=== PATIENT | female | born 1995 | race Caucasian/White ===

== ENCOUNTER 2017-09-04 08:21 | Emergency (ER) | payer SELFPAY ==
[~2017-09-04] VITALS: Ht 160 cm; Wt 90.0 kg
[~2017-09-04 08:21] MED LIST: PROM25SU8 PO
[2017-09-04 08:22] VITALS: BP 180/102; PULSE 94; RESP 14; TEMP 98.5; O2SAT 99
[2017-09-04 08:25] VITALS: BP 134/90
[2017-09-04] MEDS ORDERED: FLUT1SPR5 EACH NARE (09:00)
[2017-09-04] MEDS ORDERED: AMOX875T PO (09:00)
[2017-09-04] MEDS ORDERED: METF500T PO (09:00)
[2017-09-04] MEDS ORDERED: MAXI5O EACH EYE (09:08)
--- NOTE | 2017-09-04 09:08 | PD ---
HPI Chief Complaint: Eye Problems/Injury Time Seen by Provider: 08:46 Travel History International Travel<30 days: No Contact w/Intl Traveler<30days: No Traveled to known affect area: No History of Present Illness HPI 21-year-old female with history of polycystic ovarian syndrome presents to the emergency department with bilateral ear pain, upper respiratory congestion, headache, postnasal drip, cough, and bilateral eye irritation for the past several days. Patient denies chest pain or shortness of breath or wheezing. No specific complaints of fever. Patient is noted intermittent vaginal bleeding as well from the POC that she is currently not treating. Patient was on metformin in the past but has not had a refill of her prescription. Patient also is on estradiol prescriptions in the past but due to insurance issues she has not had refills of this as well. She denies any abdominal cramping or urinary symptoms. She has no known drug allergies. PFSH Past Medical History Asthma: Yes (EXERCISED INDUCED) Heart Rhythm Problems: Yes (IRREG HEART RATE INFANT, SAW ENGRAVER LETTER AND WAS TOLD IT WAS "NOTHING" ) Diminished Hearing: No Respiratory: Yes (PNEUMONIA 7 YRS AGO) Immunizations Current: Yes ?: Not LMP: CURRENTLY ON PERIOD Social History Alcohol Use: No Tobacco Use: No Substance Use: No Allergies-Medications (Allergen,Severity, Reaction): Coded Allergies: No Known Allergies (Verified , 06/23/14) Reported Meds & Prescriptions Reported Meds & Active Scripts Active Metformin (Metformin HCl) 500 Mg Tab 500 Mg PO BIDPC Flonase Nasal Bushnell (Fluticasone Nasal [place]nell) 50 Mcg/Act [place] 100 Mcg EACH NARE BID Amoxicillin 875 Mg Tab 875 Mg PO BID 10 Days Promethazine Hcl (Promethazine HCl) 25 Mg Tab 1 Tab PO Q6 FOR NAUSEA AND VOMITTING Review of Systems Except as stated in HPI: all other systems reviewed are Neg General / Constitutional: No: Fever Eyes: Positive: Drainage, Redness, Pain, Tearing, No: Diploplia, Blurred Vision , Photophobia, Foreign Body Sensation, Blind Spots, Visual changes, Blindness HENT: Positive: Headaches, Sore Throat, Rhinitis, Rhinorrhea, Congestion, Earache, No: Vertigo, Lightheadedness, Nosebleed, Neck Stiffness, Neck Pain, Masses, Gingival Bleeding, Dental Difficulties, Ear Discharge Cardiovascular: No: Chest Pain or Discomfort Respiratory: Positive: Cough, No: Shortness of Breath, Wheezing Gastrointestinal: No: Nausea, Vomiting, Diarrhea, Abdominal Pain Genitourinary: Positive: Vaginal Bleeding, No: Dysuria Musculoskeletal: No: Pain Skin: No Rash Neurologic: No: Weakness Psychiatric: No: Depression Endocrine: No: Polydipsia Hematologic/Lymphatic: No: Easy Bruising Physical Exam Narrative GENERAL: Moderately obese female in mild distress. SKIN: Warm and dry. Normal color. Normal pallor. HEAD: Atraumatic. Normocephalic. Moderate sinus tenderness bilaterally in both frontal and maxillary sinuses. EYES: Pupils equal and round. No scleral icterus. Mild bilateral injection without significant drainage. ENT: No nasal bleeding but moderate purulent nasal drainage. Mucous membranes boggy, erythematous and moist. Posterior pharynx is somewhat erythematous with cobblestoning and postnasal drip noted. No significant lymphadenopathy or exudate. Uvula is midline. Airway is patent. NECK: Trachea midline. Supple nontender without lymphadenopathy. CARDIOVASCULAR: Regular rate and rhythm. RESPIRATORY: No accessory muscle use. Clear to auscultation. Breath sounds equal bilaterally. GASTROINTESTINAL: Abdomen soft, non-tender, nondistended. Hepatic and splenic margins not palpable. MUSCULOSKELETAL: Extremities without clubbing, cyanosis, or edema. No obvious deformities. NEUROLOGICAL: Awake and alert. No obvious cranial nerve deficits. Motor grossly within normal limits. Five out of 5 muscle strength in the arms and legs. Normal speech. PSYCHIATRIC: Appropriate mood and affect; insight and judgment normal. Data Data Last Documented VS Vital Signs Date Time Temp Pulse Resp B/P (MAP) Pulse Ox O2 Delivery O2 Flow Rate FiO2 09/04/17 08:25 134/90 (105) 09/04/17 08:22 98.5 94 14 99 [facility] Medical Decision Making Medical Screen Exam Complete: Yes Emergency Medical Condition: Yes Differential Diagnosis Upper respiratory infection. Sinusitis. Conjunctivitis. Polycystic ovarian syndrome. Narrative Course Patient is medically stable at time of exam. Patient is treated with amoxicillin 875 twice a day 10 days per Patient also given Flonase nasal spray 2 sprays each nostril daily. Patient given a refill of her metformin 500 mg twice a day. Patient given Maxitrol ophthalmic drops as directed. [facility] her polycystic ovarian syndrome. Patient follow up if symptoms worsen as needed. Diagnosis Primary Impression: Sinusitis, acute Qualified Codes: J01.40 - Acute pansinusitis, unspecified Additional Impressions: Conjunctivitis Polycystic ovarian syndrome Referrals: [facility] [place]. Patient Instructions: Conjunctivitis (ED), General Instructions, Polycystic Ovarian Syndrome (ED), Sinusitis (ED) Additional Instructions: Patient is treated with amoxicillin 875 twice a day 10 days per Patient also given Flonase nasal spray 2 sprays each nostril daily. Patient given a refill of her metformin 500 mg twice a day. Patient given Maxitrol ophthalmic drops as directed. Patient is [facility] to [facility] for her polycystic ovarian syndrome. Patient follow up if symptoms worsen as needed. Scripts Metformin (Metformin) 500 Mg Tab 500 MG PO BIDPC for Blood Sugar Management, #60 TAB 0 Refills Prov: Case Coon MD 09/04/17 Fluticasone Nasal Bushnell (Flonase Nasal [place]nell) 50 Mcg/Act [place] 100 MCG EACH NARE BID for Allergies, #1 BOTTLE 0 Refills Prov: Case Coon MD 09/04/17 Amoxicillin (Amoxicillin) 875 Mg Tab 875 MG PO BID for Infection for 10 Days, #20 TAB 0 Refills Prov: Case Coon MD 09/04/17 Disposition: 01 DISCHARGE HOME Condition: Stable Ty Khan Sep 04, 2017 09:08
== END 2017-09-04 09:17 | disposition home or self-care (01) ==
LOC: NEPK 08:21
DX: J01.40 Acute pansinusitis, unspecified (principal); H10.9 Unspecified conjunctivitis; E28.2 Polycystic ovarian syndrome
CPT/HCPCS: 99284